=== PATIENT | male | born 1950 ===

== ENCOUNTER → 2025-01-04 19:30 | Outpatient (BNV) | payer OTHER, SELFPAY | PROVIDERS: Visit Provider Internal Medicine | DX: G47.33 Obstructive sleep apnea (adult) (pediatric) (principal); R06.83 Snoring | CPT/HCPCS: 95810 ==

== ENCOUNTER → 2025-01-04 19:30 | Outpatient (REF) | payer OTHER, SELFPAY ==
--- OUTSIDE RECORDS SUMMARY | 2025-01-04 20:46 | XMS_ITS | Encounter Summary ---
Author Organization [facility] Address [address] [place] [address] Care Team Providers Care Architect Name Role Phone Avery Frank MD Primary Care Provider [phone] Reason for Visit * Reason Comments Follow Up Patient Questions Encounter Details Date Type Department Care Team (Late st Contact Info) Description 08/22/2024 Telephone [facility] Cardiology [address] [address] Bi Connors MD [address] [place] [address] Follow Up; Patient Questions Social History Tobacco Use Types Packs/Day Years Used Date Smoking Tobacco: Former Cigarettes Q uit: 09/28/1989 Passive Smoke Exposure: Past Sex and Gender Information Value Date Recorded Sex Assigned at Not on file Legal Sex Male 9:57 PM EDT Gender Identity Not on file Sexual Orientation Not on file documented as of this encounter Miscellaneous Notes * Telephone Encounter - Vivi Welsh RN - 08/22/2024 12:53 PM EDT Call from [place] would like to ask Dr. 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 Chua (T: [phone] Ext [phone]) He would also like to ask Dr. 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 documented in this encounter Plan of Treatment Not on file documented as of this encounter Visit Diagnoses Not on filedocumented in this encounter Care Teams Architect Relationship Specialty Start Date End Date Avery Frank MD [facility] [address] [place] [address] PCP - General Internal Medicine 08/15/24 documented as of this encounter
--- OUTSIDE RECORDS SUMMARY | 2025-01-04 20:46 | XMS_ITS | Encounter Summary ---
Author Organization [facility] Address [address] [place] [address] Care Team Providers Care Event Executive Name Role Phone Avery Frank MD Primary Care Provider Reason for Referral * OUTPT PROCEDURES AND DIAGNOSTICS (Routine) - New Request Specialty Diagnoses / Procedures Referred By Quangac t Referred To Contact Cardiology Diagnoses Nonrheumatic aortic valve stenosis Procedures REQUEST FOR ECHO - EXTERNAL REQUEST FOR ECHO - EXTERNAL Kiko Sparrow DO [address] [address] Phone: tel: fax: Referral ID Status Reason Start Date Expiration Date Visits Requested Visits Authorized [id number] New Request Specialty Services Required 09/06/2024 1 1 Encounter Details Date Type Department Care Team (Late st Contact Info) Description 09/06/2024 Orders Only [facility] Cardiology [phone] [address] Kiko Sparrow DO [address] [address] Social History Tobacco Use Types Packs/Day Years Used Date Smoking Tobacco: Former Cigarettes Q uit: 09/28/1989 Passive Smoke Exposure: Past Sex and Gender Information Value Date Recorded Sex Assigned at Not on file Legal Sex Male 9:57 PM EDT Gender Identity Not on file Sexual Orientation Not on file documented as of this encounter Plan of Treatment Scheduled Orders Name Type Priority Associated Diagnoses Orde r Schedule REQUEST FOR ECHO - EXTERNAL cardiovascular Routine Nonrheumatic aortic valve stenosis Ordered: 09/06/2024 documented as of this encounter Visit Diagnoses Diagnosis Nonrheumatic aortic valve stenosis- Primary Aortic valve disorders documented in this encounter Care Teams Event Executive Relationship Specialty Start Date End Date Avery Frank MD [facility] [address] [place] [address] PCP - General Internal Medicine 08/15/24 documented as of this encounter
--- OUTSIDE RECORDS SUMMARY | 2025-01-04 20:46 | XMS_ITS | Encounter Summary ---
Author Organization [facility] Address [address] [place] [address] Care Team Providers Care Intelligence Operations Specialist Name Role Phone Avery Frank MD Primary Care Provider [phone] Encounter Details Date Type Department Care Team (Latest Contact Info) Description 10/27/2024 Professional Billing [facility] Nephrology [address] [place] [phone] Issa Bright MD [address] [place] [id number] Acute renal failure superimposed on chronic kidney disease, unspecified acute renal failure type, unspecified CKD stage Social History Tobacco Use Types Packs/Day Years Used Date Smoking Tobacco: Former Cigarettes Q uit: 09/28/1989 Passive Smoke Exposure: Past Sex and Gender Information Value Date Recorded Sex Assigned at Not on file Legal Sex Male 9:57 PM EDT Gender Identity Not on file Sexual Orientation Not on file documented as of this encounter Plan of Treatment Not on file documented as of this encounter Visit Diagnoses Diagnosis Acute renal failure superimposed on chronic kidney disease, unspecified acute renal failure type, unspecified CKD stage documented in this encounter Care Teams Intelligence Operations Specialist Relationship Specialty Start Date End Date Avery Frank MD [facility] [address] [place] [address] PCP - General Internal Medicine 08/15/24 documented as of this encounter
--- OUTSIDE RECORDS SUMMARY | 2025-01-04 20:46 | XMS_ITS | Clinical Summary ---
Author Organization [facility] Address [address] [place] [address] Care Team Providers Care Finisher Machine Name Role Phone Avery Frank MD Primary Care Provider [phone] Medications Ezetimibe (ZETIA) 10 MG tablet Take 1 tablet every day by oral route. 06/25/2024 Active hydrALAZINE HCl (APRESOLINE) 25 MG tablet Take 25 mg by mouth. 06/25/2024 Active Nitroglycerin (NITROSTAT) 0.4 MG SL tablet Active Isosorbide Mononitrate CR (IMDUR) 30 MG 24 hr tablet Take 1 tablet every day by oral route. Active Losartan Potassium (COZAAR) 100 MG tablet Take 1 tablet every day by oral route. 06/25/2024 Active Rosuvastatin Calcium (CRESTOR) 40 MG tablet Take 1 tablet every day by oral route. 04/23/2024 Active Aspirin 81 MG Cap Take 1 capsule every day by oral route. Active Gabapentin (NEURONTIN) 300 MG capsule Take 1 capsule by mouth every night. 08/14/2024 Active Active Problems Problem Noted Date Diagnosed Date Nonrheumatic aortic valve st enosis - post TAVR 29 mm JOVON Ultra 10/09/2024 at [facility] 08/25/2024 Angina pectoris 08/15/2024 Encounters Date Type Department Care Team Description 10/27/2024 Professional Billing [facility] Nephrology [address] [place] [phone] Issa Bright MD Acute renal failure superimposed on chronic kidney disease, unspecified acute renal failure type, unspecified CKD stage 10/22/2024 Minor Procedure/Test NON FC [facility] [address] [place] [address] [facility], Unknown Provider 10/21/2024 Professional Billing [facility] [address] [place] [address] Jack Nielsen MD WAYNE (acute kidney injury) [N17.9] 10/21/2024 Consult (Initial) NON FC [address] [address] Julia Bowesr MD 10/21/2024 Consult (Initial) NON FC [address] [address] Jack Nielsen MD 10/21/2024 Consult (Initial) NON FC SA [address] [address] [facility], Unknown Provider 10/21/2024 ER NON FC [address] [address], Unknown Provider 10/21/2024 Hospital/Inpatient NON FC [address] [address] Justice Arnett [facility], Unknown Provider Sepsis, unspecified organism (HCC); Other toxic encephalopathy; Bronchopneumonia, unspecified organism; Pneumonitis due to inhalation of food and vomit (HCC); Acute kidney failure with tubular necrosis; Acidosis, unspecified; Anemia, unspecified; Type 2 diabetes mellitus with diabetic chronic kidney disease (HCC); Unspecified diastolic (congestive) heart failure (HCC); Chronic kidney disease, stage 4 (severe) (HCC); Hypertensive heart and chronic kidney disease with heart failure and stage 1 through stage 4 chronic kidney disease, or unspecified chronic kidney disease (HCC); Hypothyroidism, unspecified; Obesity, unspecified; Thoracic aortic ectasia; Presence of prosthetic heart valve; Melena; Hyperkalemia; Ischemic cardiomyopathy; Body mass index (BMI) 36.0-36.9, adult; Nonrheumatic mitral (valve) insufficiency; Type 2 diabetes mellitus with diabetic polyneuropathy (HCC); Collapsed vertebra, not elsewhere classified, lumbar region, subsequent encounter for fracture with routine healing; Chronic total occlusion of coronary artery; Hyperlipidemia, unspecified; Unspecified chronic gastritis without bleeding Discharge Disposition: Discharged to home or self care (routine discharge) 10/10/2024 Professional Billing [facility] Cardiology [address] [address] Jessika Jain MD Aortic valve stenosis, etiology of cardiac valve disease unspecified; S/P TAVR (transcatheter aortic valve replacement) 10/09/2024 Orders Only NON FC [facility] [address] [place] [address] [facility], Unknown Provider 10/09/2024 Professional Billing [facility] Cardiology [address] [phone] Bi Connors MD Aortic valve stenosis, etiology of cardiac valve disease unspecified 10/04/2024 Telephone [facility] Cardiology [address] [facility] [address] [place] [phone] Bi Connors MD Valvular-structural Heart Intervention from Last 3 Months Social History Tobacco Use Types Packs/Day Years Used Date Smoking Tobacco: Former Cigarettes Q uit: 09/28/1989 Passive Smoke Exposure: Past Tobacco Cessation:Counseling Given: Not Answered Sex and Gender Information Value Date Recorded Sex Assigned at Not on file Legal Sex Male 9:57 PM EDT Gender Identity Not on file Sexual Orientation Not on file Last Filed Vital Signs Vital Sign Reading Time Taken Comments Blood Pressure 126/64 08/15/2024 1:57 PM EDT Pulse 78 08/15/2024 1:57 PM EDT Temperature - - Respiratory Rate - - Oxygen Saturation 97% 08/15/2024 1:57 PM EDT Inhaled Oxygen Concentration - - Weight 108 kg (238 lb) 08/15/2024 1:57 PM EDT Height 170.2 cm (5' 7 ) 08/15/2024 1:57 PM EDT Body Mass Index 37.28 08/15/2024 1:57 PM EDT Plan of Treatment Health Maintenance Due Date Last Done Comments Hepatitis C Screening 1950 Parathyroid Hormone Screening 1950 DTaP/Tdap/Td (1 - Tdap) 1967 Pneumococcal 50+ years (1 of 2 - PCV) 02/05/1968 Hep B (1 of 3 - Risk Dialysis 4-dose series) 1969 Colon Cancer Screening 1994 Zoster (Shingrix) (1 of 2) 1999 Abdominal Aorta Imaging 2014 RSV (1 - 1-dose 75+ series) 02/05/2024 COVID-19 Vaccine ( - season) 2024 01/31/2021, 06/20/2020, 05/23/2020 Influenza (#1) 2024 05/18/2023, 10/2021, 01/26/2019, Additional history exists Chest Imaging Discontinued 08/25/2024, 08/23/2024 EKG Discontinued 10/21/2024, 09/19, 09/19/2024, Additional history exists HPV Vaccine (No Doses Required) Completed Hep A Aged Out No longer eligi ble based on patient's age to complete this topic Hib Aged Out No longer eligi ble based on patient's age to complete this topic Meningococcal ACWY Aged Out No longer eligible based on patient's age to complete this topic Microalbumin Discontinued Zoster (Zostavax) Discontinued Procedures * Due to [place] state law, this organization might not be sharing negative HIV tests. Procedure Name Priority Date/Time Associated Diagnosis Comments GLUCOSE POINT OF CARE Routine 10/23/2024 4:38 PM EDT GLUCOSE POINT OF CARE Routine 10/23/2024 11:09 AM EDT GLUCOSE POINT OF CARE Routine 10/23/2024 7:46 AM EDT PHOSPHATE LEVEL Routine 10/23/2024 5:21 AM EDT MAGNESIUM LEVEL Routine 10/23/2024 5:21 AM EDT COMPREHENSIVE METABOLIC PANEL Routine 10/23/2024 5:21 AM EDT COMPLETE BLOOD COUNT WITH AUTO DIFFERENTIAL Routine 10/23/2024 5:21 AM EDT GLUCOSE POINT OF CARE Routine 10/22/2024 9:20 PM EDT BASIC METABOLIC PANEL Routine 10/22/2024 6:38 PM EDT COMPREHENSIVE METABOLIC PANEL Routine 10/22/2024 6:38 PM EDT CBC Routine 10/22/2024 6:38 PM EDT GLUCOSE POINT OF CARE Routine 10/22/2024 4:46 PM EDT GLUCOSE POINT OF CARE Routine 10/22/2024 11:17 AM EDT PHOSPHATE LEVEL Routine 10/22/2024 10:19 AM EDT MAGNESIUM LEVEL Routine 10/22/2024 10:19 AM EDT COMPREHENSIVE METABOLIC PANEL Routine 10/22/2024 10:19 AM EDT TROPONIN T, HIGH SENSITIVITY Routine 10/22/2024 10:19 AM EDT CBC Routine 10/22/2024 10:19 AM EDT GLUCOSE POINT OF CARE Routine 10/22/2024 7:21 AM EDT MODIFIED BARIUM SWALLOW 10/22/2024 TROPONIN T, HIGH SENSITIVITY Routine 10/21/2024 9:02 PM EDT GLUCOSE POINT OF CARE Routine 10/21/2024 8:21 PM EDT TRANSFUSION OF BLOOD PRODUCT Routine 10/21/2024 8:09 PM EDT URINALYSIS MICROSCOPIC EXAM Routine 10/21/2024 7:19 PM EDT URINALYSIS AUTO W/MICROSCOPIC Routine 10/21/2024 7:19 PM EDT ELECTROCARDIOGRAM, TRACING Routine 10/21/2024 7:17 PM EDT MYCOPLASMA PNEUMONIA ANTIBODY IGM Routine 10/21/2024 5:14 PM EDT TROPONIN T, HIGH SENSITIVITY Routine 10/21/2024 5:14 PM EDT LDH Routine 10/21/2024 5:14 PM EDT BASIC METABOLIC PANEL Routine 10/21/2024 5:14 PM EDT RETIC COUNT AUTO Routine 10/21/2024 5:14 PM EDT CBC Routine 10/21/2024 5:14 PM EDT GLUCOSE POINT OF CARE Routine 10/21/2024 5:01 PM EDT MYCOPLASMA PNEUMONIA ANTIBODY IGG Routine 10/21/2024 3:48 PM EDT HAPTOGLOBIN Routine 10/21/2024 3:48 PM EDT MRSA CULTURE SCREEN, NASAL ONLY Routine 10/21/2024 1:21 PM EDT STREP PNEUMONIA URINE Routine 10/21/2024 1:21 PM EDT LEGIONELLA/S.PNEUMO UR ANTIGEN Routine 10/21/2024 1:21 PM EDT GLUCOSE POINT OF CARE Routine 10/21/2024 7:14 AM EDT BLOOD CULTURE Routine 10/21/2024 6:35 AM EDT BLOOD CULTURE Routine 10/21/2024 6:35 AM EDT TRANSFUSION OF BLOOD PRODUCT Routine 10/21/2024 5:48 AM EDT IRON LEVEL Routine 10/21/2024 2:22 AM EDT IRON BINDING CAPACITY Routine 10/21/2024 2:22 AM EDT UNSPECIFIED MAJOR PROCEDURE 10/21/2024 ECHOCARDIOGRAM Routine 10/10/2024 7:43 AM EDT CARDIOVASCULAR TEST/PROCEDURE, UNSPECIFIED Routine 10/09/2024 11:36 AM EDT ELECTROCARDIOGRAM, TRACING Routine 10/09/2024 10:[address] CHEST, W/O CONTRAST Routine 1:25 PM EDT from Last 3 Months or Most Recently Relevant to Health Maintenance Results * Due to [place] state law, this organization might not be sharing negative HIV tests. * (ABNORMAL) GLUCOSE POINT OF CARE (10/23/2024 4:38 PM EDT) Only the most recent of10 resultswithin the time period is included. Glucose (Capillary Blood) 276(H) 70 - 105 mg/dL [facility] 10/23/2024 4:38 PM EDT 10/23/2024 4:38 PM EDT us Justice Arnett LABORATORY Final Result [facility] [address] [place] [address] * (ABNORMAL) PHOSPHATE LEVEL (10/23/2024 5:21 AM EDT) Only the most recent of2 resultswithin the time period is included. Phosphate 4.7(H) 2.5 - 4.5 mg/dL [facility] 10/23/2024 5:21 AM EDT 10/23/2024 5:30 AM EDT Unknown Provider [facility] LABORATORY Final Resul t [facility] [address] [place] [address] * MAGNESIUM LEVEL (10/23/2024 5:21 AM EDT) Only the most recent of2 resultswithin the time period is included. Magnesium 2.1 1.6 - 2.6 mg/dL [facility] 10/23/2024 5:21 AM EDT 10/23/2024 5:30 AM EDT us Unknown Provider Sv LABORATORY Final Resul t [facility] [address] [place] [address] * (ABNORMAL) COMPLETE BLOOD COUNT WITH AUTO DIFFERENTIAL (10/23/2024 5:21 AM EDT) WBC 8.9 3.9 - 11.0 x10(3)/[facility] RBC 3.53(L) 4.30 - 5.80 million/mc L [facility] HGB 9.6(L) 12.5 - 17.0 g/dL [facility] HCT 29.3(L) 36.0 - 50.0 % [facility] MCV 83 80 - 100 fL [facility] MCH 27 27 - 33 pg [facility] MCHC 33 31 - 36 g/dL [facility] RDW-SD 48 [facility] PLATELET COUNT 271 150 - 450 x10(3)/[facility] MPV 9.6 7.0 - 11.0 fL [facility] NEUTROPHIL REL 70 42 - 76 % [facility] LYMPHOCYTE REL 16(L) 27 - 47 % [facility] MONOCYTE REL 8 4 - 13 % [facility] EOSINOPHIL REL 4 0 - 7 % [facility] BASOPHIL REL 1 0 - 3 % [facility] IMM GRAN REL 0 % [facility] NEUTROPHIL ABS 6.2 1.8 - 7.0 x10(3)/[facility] LYMPHOCYTE ABS 1.4 1.1 - 5.9 x10(3)/[facility] MONOCYTE ABS 0.7 0.1 - 0.8 x10(3)/[facility] EOSINOPHIL ABS 0.39 0.00 - 0.40 x10(3)/[facility] BASOPHIL ABS 0.10 0.00 - 0.20 x10(3)/[facility] IMM GRAN ABS 0 10(3)/uL [facility] NRBC AUTO REL 0 % [facility] NRBC AUTO ABS 0.00 x10(3)/mcL [facility] 10/23/2024 5:21 AM EDT 10/23/2024 5:29 AM EDT us Unknown Provider Svh LABORATORY Final Resul t [facility] [address] [place] [address] * (ABNORMAL) COMPREHENSIVE METABOLIC PANEL (10/23/2024 5:21 AM EDT) Only the most recent of3 resultswithin the time period is included. Sodium 133(L) 134 - 144 mEq/L [facility] Potassium 4.5 3.6 - 5.6 mEq/L [facility] Chloride 103 96 - 109 mEq/L [facility] Carbon dioxide 18(L) 20 - 32 mEq/L [facility] Glucose 131(H) 65 - 99 mg/dL [facility] Urea Nitrogen Blood (BUN) 68(H) 5 - 26 mg/dL [facility] Creatinine 3.38(H) 0.50 - 1.50 mg/dL [facility] Anion gap 12.0 8.0 - 15.0 [facility] BUN/Creatinine Ratio 20 8 - 27 [facility] Protein Total (Serum) 6.6 6.0 - 8.5 g/dL [facility] Albumin 3.8 3.5 - 4.8 g/dL [facility] Calcium 9.0 8.3 - 10.0 mg/dL [facility] Bilirubin Total 0.3 0.1 - 1.2 mg/dL [facility] Comment: Premature Full Term Cord <2.0 <2.0 0-1d <8.0 <8.0 1-2d <12.0 <8.0 3-5d <16.0 <12.0 5-10d <2.0 0.2-1.0 >10d <2.0 0.2-1.0 Alkaline phosphatase 68 25 - 160 U/L [facility] AST (SGOT) 19 0 - 55 U/L [facility] ALT (SGPT) 11 0 - 44 U/L [facility] Globulin 2.8 1.5 - 4.5 g/dL [facility] Osmolality 298(H) 275 - 295 mOsm/kg [facility] Albumin/Globulin 1.4 1.1 - 2.5 [facility] Calcium 9 mg/dL [facility] EGFR CKD-EPI 18(L) >=90 mL/min/1.7 3m2 [facility] 10/23/2024 5:21 AM EDT 10/23/2024 5:30 AM EDT us Unknown Provider [facility] LABORATORY Final Resul t Performing Organization Address City/[facility]/ZIP Co de Phone Number [facility] [address] [place] [address] * (ABNORMAL) CBC (10/22/2024 6:38 PM EDT) Only the most recent of3 resultswithin the time period is included. WBC 8.1 3.9 - 11.0 x10(3)/[facility] RBC 3.34(L) 4.30 - 5.80 million/mc L [facility] HGB 9.5(L) 12.5 - 17.0 g/dL [facility] HCT 28.2(L) 36.0 - 50.0 % [facility] MCV 84 80 - 100 fL [facility] MCH 28 27 - 33 pg [facility] MCHC 34 31 - 36 g/dL [facility] RDW-SD 49 [facility] PLATELET COUNT 265 150 - 450 x10(3)/[facility] MPV 9.4 7.0 - 11.0 fL [facility] 10/22/2024 6:38 PM EDT 10/22/2024 7:04 PM EDT us Unknown Provider [facility] LABORATORY Final Resul t Performing Organization Address City/[facility]/ZIP Co de Phone Number [facility] [address] [place] [address] * (ABNORMAL) BASIC METABOLIC PANEL (10/22/2024 6:38 PM EDT) Only the most recent of2 resultswithin the time period is included. Sodium 135 134 - 144 mEq/L [facility] Potassium 4.5 3.6 - 5.6 mEq/L [facility] Chloride 105 96 - 109 mEq/L [facility] Carbon dioxide 19(L) 20 - 32 mEq/L [facility] Glucose 195(H) 65 - 99 mg/dL [facility] Urea Nitrogen Blood (BUN) 71(H) 5 - 26 mg/dL [facility] Creatinine 3.48(H) 0.50 - 1.50 mg/dL [facility] Calcium 8.9 8.3 - 10.0 mg/dL [facility] Anion gap 11.0 8.0 - 15.0 [facility] BUN/Creatinine Ratio 20 8 - 27 [facility] Osmolality 306(H) 275 - 305 mmol/kg [facility] EGFR CKD-EPI 18(L) >=90 mL/min/1.7 3m2 [facility] 10/22/2024 6:38 PM EDT 10/22/2024 7:05 PM EDT us Unknown Provider [facility] LABORATORY Final Resul t Performing Organization Address City/[facility]/ZIP Co de Phone Number [facility] [address] [place] [address] * (ABNORMAL) TROPONIN T, HIGH SENSITIVITY (10/22/2024 10:19 AM EDT) Only the most recent of3 resultswithin the time period is included. TROPONIN T. CARDIAC [facility] PT SER/PLAS QN HIGH SENSITIVITY 864(C) 0 - 22 ng/L [facility] Comment:critical prev called 10/22/2024 10:1 9 AM EDT 10/22/2024 10:31 AM EDT us Angie Padilla MD LABORATORY Final Result [facility] [address] [place] [address] * MODIFIED BARIUM SWALLOW (10/22/2024) Anatomical Region Laterality Modality Other Narrative 10/22/2024 Ordered by an unspecified provider. Procedure Note [facility], Unknown Provider - 10/21/2024 4:00 PM EDT SKIVER COUNTER Evaluation Entered On: 10/22/2024 14:42 EDT Performed On: 10/22/2024 10:15 EDT by Ashley Luna [facility] Physical Therapy Orders : No active Physical Therapy Orders. Occupational Therapy Orders : No active Occupational Therapy orders. Speech Orders : Speech Therapy Bedside Swallow Evaluation & Treatment- Routine, 10/21/2024 16:00:00 EDT, Once Scheduled Diagnosis : CHIEF COMPLAINT WAYNE N17.9 Patient Preferred Language : Patient Language: American Ashley Luna - 10/22/2024 14:26 EDT History of Present Illness History of Present Illness SKIVER COUNTER : 74M PMHx HF and DIAMOND p/w weakness, fallfrom chair, and BRBPR with low H&H. He had recently had a TAVR (10/09/24) and[facility], was dx with sepsis from aspirationPNA based on imaging. At [facility], Pt underwent 10/21 EGD revealing medium hiatalhernia and erosive antral gastritis. At time of SKIVER COUNTER eval, Pt was afebrile withWBC WNL. He is previously unknown to [facility] SKIVER COUNTER dept. He denies hx ofdifficulty swallowing, PNA, and s/sx of reflux. Ashley Luna - 10/22/2024 14:26 EDT Mental Status/Alertness Level Level of Consciousness : Alert Orientation : Oriented X 4 Thought Process : Coherent Ashley Luna - 10/22/2024 14:26 EDT Oral Motor Current Diet Order : Clear Liquid Diet -- 10/21/2024 15:13:00 EDT Current Method of Nutrition : Oral intake Dentition : Fair, Missing some teeth Wired/Banded : No Manages Own Secretions : Yes Ashley Luna - 10/22/2024 14:26 EDT Oral Structure Grid Facial : WFL Labial : WFL Lingual : WFL Soft Palate : WFL Hard Palate : WFL Mandible : WFL Ashley Luna 10/22/2024 14:26 EDT Swallow Assessment Function Grid Facial : WFL Labial : WFL Lingual : WFL Soft Palate : WFL Hard Palate : WFL Mandible : WFL (Comment: cadd instructor V, VII, IX, X, XII intact b/l [Ashley Luna10/22/2024 14:26 EDT] ) Volitional Cough : Within normal limits Ashley Luna 10/22/2024 14:26 EDT Bedside Swallow Patient Position Bedside Swallow : Upright 90 degrees Suctioning Required : No Ashley Luna 10/22/2024 14:26 EDT Rehab Consistencies Tested Grid Continuous Thin by Straw : Passed Ashley Luna 10/22/2024 14:26 EDT Liquid/Solid Presentation Bedside : Patient Oral Symptoms : None observed Pharyngeal Symptoms : None observed Ashley Luna 10/22/2024 14:26 EDT Rehab Swallow Vocalization Grid Before Intake : Dry quality After Intake : Dry quality Ashley Luna 10/22/2024 14:26 EDT Diagnostic Findings : Pt declined laryngeal function exam. Predisposing risk factors for dysphagia: HF, DIAMOND; Precipitating riskfactors for dysphagia: GIB, PNA; Protective factors against dysphagia:functional mental status for PO intake, able to self-feed/clean oral cavity, stableon room air. Low concern or oropharyngeal dysphagia and prandial aspiration. Pt athigher risk for esophageal dysphagia and post-prandial aspiration. Pt educatedon s/sx of aspiration and PNA and encouraged to seek swallow re-assessmentfor any relevant changes in his condition. Ashley Luna 10/22/2024 14:26 EDT Vital Signs Respiratory Rate : 19 breaths/min SpO2 : 98 % Oxygen Delivery : Room air Ashley Luna 10/22/2024 14:26 EDT Diet Recommended Liquid Consistencies : Thin Recommended Diet : Regular Swallow Treatment Plan : Recommended Swallow Strategies Recommended : None Swallow Supervision Recommended : None Ashley Luna 10/22/2024 14:[address] Assessment Rehabilitation Potential : Good Speech/Language Deficits : Dysphagia Skilled Speech Services Justification : Ensure safe and effectivenutrition, Prevent aspiration pneumonia Ashley Luna 10/22/2024 14:[address] Plan Planned Swallow Treatment Techniques : Training of compensatoryswallow strategies Ashley Luna - 10/22/2024 14:[address] Goals Speech/Language/Patient/Caregiver Goals : Pt wants to get eating. ST Plan/Goals Established w Pt/Caregiver : Yes ST Short Term Goal #1 : Pt will utilize esophageal precautions duringand after all PO intake. ST STG #1 Goal Status : Initial assessment ST Usp Goal #1 : Pt will consume safest and least restrictive POdiet meeting nutrition, hydration, and quality of life needs. ST LTG #1 Goal Status : Initial assessment Ashley Luna - 10/22/2024 14:[address] Procedures : Oral/Pharyngeal Swallowing Function Eval Complex Emeli COLE, Ashley - 10/22/2024 14:26 EDT us Unknown Provider [facility] IMAGING - NO INBASKET RTG F inal Result * TRANSFUSION OF BLOOD PRODUCT (10/21/2024 8:09 PM EDT) [facility] Signature RED BLOOD CELL PRODUCT Patient Name: CAMERON WU : 1950 Sex:Male Location: [place] [address]; [address] [place] [address] Posting Machine Operator(s): [address] [place] [id number] Ordering Physician: René BRAVO, [facility] Laboratory Results Blood Bank Collected Date/Time Specimen Type 10/21/2024 20:09 EDT Blood Procedure Result Units Reference Verified Range Date/Time Red Cells Complete [*1] 10/21/2024 20:13 EDT # Units 1 [*1] 10/21/2024 20:13 EDT Performing Locations *1: This test was performed at: [facility], [address] [place] [address], [phone], , Legend: A = Abnormal, H = High, L = Low, ! = Critical, f = Footnote, r = Refere = Corrected, I = Interpretation [facility] 10/21/2024 8:09 PM EDT 10/21/2024 8:13 PM EDT us Unknown Provider Svh PROCEDURES Final Resul t Performing Organization Address City/[facility]/ZIP Co de Phone Number [facility] [address] [place] [address] * (ABNORMAL) URINALYSIS MICROSCOPIC EXAM (10/21/2024 7:19 PM EDT) WBC (Urine) 31-40(A) 0 - 10 /hpf [facility] RBC (Urine Sed) 3-5(A) 0 - 2 /hpf [facility] Bacteria (Urine) Few(A) None Seen /hpf [facility] Epithelial cells.squamous (Urine sed) None Seen None Seen /hpf [facility] Mucus (Urine sed) Few(A) None Seen /hpf [facility] Hyaline casts (Urine sed) 0-1(A) /lpf [facility] Leukocyte clumps (Urine sed) 5-9 (Few)(A) None Seen /hpf [facility] 10/21/2024 7:19 PM EDT 10/21/2024 7:25 PM EDT us Angie Padilla MD LABORATORY Final Result Performing Organization Address [facility] Co de Phone Number [facility] [address] [place] [address] * (ABNORMAL) URINALYSIS AUTO W/MICROSCOPIC (10/21/2024 7:19 PM EDT) Specific gravity (Urine) 1.010 1.003 - 1.030 [facility] pH (Urine) 5.5 5.0 - 9.0 [facility] Leukocyte esterase (Urine) Large(A) Negative [facility] Nitrite (Urine) Negative Negative [facility] Protein (Urine) 30(A) Negative mg/dL [facility] Glucose (Urine) >1000(A) Negative mg/dL [facility] Ketones (Urine) Negative Negative mg/dL [facility] Urobilinogen (Urine) Normal Normal mg/dL [facility] Bilirubin (Urine) Negative [facility] Hemoglobin (Urine) Small(A) Negative [facility] Color (Urine) Colorless Yellow [facility] Appearance (Urine) Slightly Cloudy(A) Clear [facility] 10/21/2024 7:19 PM EDT 10/21/2024 7:25 PM EDT us Angie Padilla MD LABORATORY Final Result Performing Organization Address City/State/[facility] Co de Phone Number [facility] [address] [place] [address] * ELECTROCARDIOGRAM, TRACING (10/21/2024 7:17 PM EDT) Only the most recent of2 resultswithin the time period is included. T HORIZONTAL AXIS 163 degree [facility] QRS AXIS 45 degree [facility] IN INTERVAL 210 msec [facility] QRSD INTERVAL 109 msec [facility] RAD T-40 FRONT AXIS 83 degree [facility] RAD QRS HORIZONTAL AXIS -11 degree [facility] [facility] ATRIAL RATE 74 msec [facility] Q ONSET 502 msec [facility] ELECTROCARDIOGRAM 12 LEAD - ABNORMAL ECG - Sinus rhythm LVH with secondary repolarization abnormality [facility] Comment:Missing Attachment B 64ENCODE Can be viewed in source system QTCF 406 msec [facility] RR INTERVAL 822 msec [facility] P FRONT AXIS 60 degree [facility] S-T FRONT AXIS 218 degree [facility] RAD T-40 HORIZONTAL AXIS -62 degree [facility] HEART RATE 73 bpm [facility] RAD P HORIZONTAL AXIS -36 degree [facility] QTCB 419 msec [facility] S-T HORIZONTAL AXIS 163 degree [facility] I-40 FRONT AXIS 10 degree [facility] P DURATION 0 msec [facility] RAD T WAVE AXIS 206 degree [facility] I-40 HORIZONTAL AXIS 20 degree [facility] QT INTERVAL 380 msec [facility] 10/21/2024 7:17 PM EDT us Unknown Provider Svh CARDIOVASCULAR-NO INBASKET RTG Final Result Performing Organization Address City/[facility]/ZIP Co de Phone Number [facility] [address] [place] [address] * MYCOPLASMA PNEUMONIA ANTIBODY IGM (10/21/2024 5:14 PM EDT) [facility] Mycoplasma pneumoniae Ab.IgM <770 0 - 769 units/mL [facility] Comment: Negative <770 Clinically significant amount of M. pneumoniae antibody not detected. Low Positive 770 - 950 M. pneumoniae specific IgM presumptively detected. It is recommended that another sample be collected 1-2 weeks later to assure reactivity. Positive >950 Highly significant amount of M. pneumoniae specific IgM antibody detected. Performed at: - [facility] [id number] Lead Ruby On Rails Developer: Mallory Perla MD, Phone: [phone] 10/21/2024 5:14 PM EDT 10/21/2024 5:42 PM EDT Angie Padilla MD LABORATORY Final Result Performing Organization Address [facility] Co de Phone Number [facility] [address] [place] [address] * RETIC COUNT AUTO (10/21/2024 5:14 PM EDT) [facility] RETIC RELATIVE 3.2 0.4 - 5.3 % [facility] RETIC ABSOLUTE 81.5 20.0 - 120.0 10e9/L [facility] 10/21/2024 5:14 PM EDT 10/21/2024 5:42 PM EDT Angie Padilla MD LABORATORY Final Result Performing Organization Address City/[facility]/ZIP Co de Phone Number [facility] [address] [place] [address] * (ABNORMAL) LDH (10/21/2024 5:14 PM EDT) [facility] Lactate dehydrogenase 242(H) 0 - 226 U/L [facility] 10/21/2024 5:14 PM EDT 10/21/2024 5:42 PM EDT us Angie Padilla MD LABORATORY Final Result [facility] [address] [place] [address] * (ABNORMAL) MYCOPLASMA PNEUMONIA ANTIBODY IGG (10/21/2024 3:48 PM EDT) [facility] Mycoplasma pneumoniae Ab.IgG 146(H) 0 - 99 units/mL [facility] Comment: Negative: <100 Indeterminate: 100 - 320 Positive: >320 The reference interval established is intended as a baseline only. Values >100 may indicate a recent infection with Mycoplasma pneumoniae and need to be confirmed either by a positive IgM result and/or an additional specimen drawn 2-4 weeks later showing a significant increase in antibody levels. Performed at: [address] [id number] Lead Ruby On Rails Developer: Mallory Perla MD, Phone: [phone] 10/21/2024 3:48 PM EDT 10/21/2024 3:57 PM EDT us Angie Padilla MD LABORATORY Final Result Performing Organization Address City/[facility]/ZIP Co de Phone Number [facility] [address] [place] [address] * HAPTOGLOBIN (10/21/2024 3:48 PM EDT) [facility] Haptoglobin 256 34 - 355 mg/dL [facility] Comment: Performed at: [address] [id number] Lead Ruby On Rails Developer: Mallory Perla MD, Phone: [phone] 10/21/2024 3:48 PM EDT 10/21/2024 3:56 PM EDT Angie Padilla MD LABORATORY Final Result Performing Organization Address City/[facility]/ZIP Co de Phone Number [facility] [address] [place] [address] * MRSA CULTURE SCREEN, NASAL ONLY (10/21/2024 1:21 PM EDT) [facility] MRSA SCREEN Patient Name: CAMERON WU : 1950 Sex:Male Location: [place] [address]; [facility]; [facility] Posting Machine Operator(s): [address] [place] [id number]- Ordering Physician: ANGIE PADILLA MD Microbiology Procedure: MRSA Screen Culture [*1] Source: Nasal Body Site: Nares Collected 10/21/2024 13:21 EDT Received 10/21/2024 13:53 EDT Date/Time: Date/Time: Start Date/Time: 10/21/2024 13:53 EDT Free Text Source: FINAL REPORTS Final Report [] Verified Date/Time: 10/23/2024 08:14 EDT No Methicillin resistant Staphylococcus aureus isolated. Performing Locations *1: This test was performed at: [facility], [address] [place] [address], [phone], , Legend: A = Abnormal, H = High, L = Low, ! = Critical, f = Footnote, r = Refere = Corrected, I = Interpretation [facility] 10/21/2024 1:21 PM EDT 10/21/2024 1:53 PM EDT us Angie Padilla MD LABORATORY Final Result Performing Organization Address [facility] Co de Phone Number [facility] [address] [place] [address] * STREP PNEUMONIA URINE (10/21/2024 1:21 PM EDT) Streptococcus pneumoniae Ag (Urine) Presumptive Neg Presumptive Neg [facility] Comment: Results suggest no current or recent infection with S. pneumoniae. Infection cannot be ruled out since antigen in specimen may be below the detectable limits of the test 10/21/2024 1:21 PM EDT 10/21/2024 1:22 PM EDT Angie Padilla MD LABORATORY Final Result Performing Organization Address [facility]/State/ZIP Co de Phone Number [facility] [address] [place] [address] * LEGIONELLA/S.PNEUMO UR ANTIGEN (10/21/2024 1:21 PM EDT) Legionella sp Ag (Urine) Presumptive Neg Presumptive Neg [facility] Comment: Results suggest no recent or current infection with L. pneumophila serogroup 1. Legionella infection cannot be ruled out for other serogroups or if antigen levels are below test detectable limits of the test. 10/21/2024 1:21 PM EDT 10/21/2024 1:22 PM EDT us Angie Padilla MD LABORATORY Final Result [facility] [address] [place] [address] * BLOOD CULTURE (10/21/2024 6:35 AM EDT) Only the most recent of2 resultswithin the time period is included. Pathologist [facility] BLOOD CULTURE Patient Name: CAMERON UW : 1950 Sex:Male Location: [place] [address]; [facility] Posting Machine Operator(s): [address] [place] [phone]- Ordering Physician: BI MCKINNEY MD Microbiology Procedure: Blood Culture [*1] Source: Peripheral Draw Body Site: Collected 10/21/2024 06:35 EDT Received 10/21/2024 09:10 EDT Date/Time: Date/Time: Start Date/Time: 10/21/2024 09:11 EDT Free Text Source: FINAL REPORTS Final Report [] Verified Date/Time: 10/26/2024 12:01 EDT No growth at 5 days. PRELIMINARY REPORTS Preliminary Report [] Verified Date/Time: 10/25/2024 12:01 EDT No growth at 4 days. Preliminary Report [] Verified Date/Time: 10/24/2024 12:01 EDT No growth at 3 days. Preliminary Report [] Verified Date/Time: 10/23/2024 12:02 EDT No growth at 2 days. Preliminary Report [] Verified Date/Time: 10/22/2024 12:01 EDT No growth at 1 day. Performing Locations *1: This test was performed at: [facility], [address] [place] [address], [phone], , Legend: A = Abnormal, H = High, L = Low, ! = Critical, f = Footnote, r = Refere = Corrected, I = Interpretation [facility] 10/21/2024 6:35 AM EDT 10/21/2024 9:10 AM EDT us Unknown Provider [facility] LABORATORY Final Resul t [facility] [address] [place] [address] * TRANSFUSION OF BLOOD PRODUCT (10/21/2024 5:48 AM EDT) [facility] Signature RED BLOOD CELL PRODUCT Patient Name: CAMERON WU : 1950 Sex:Male Location: [facility] - ; [address]; [facility] Posting Machine Operator(s): [address] [place] [phone] Ordering Physician: BI MCKINNEY MD Laboratory Results Blood Bank Collected Date/Time Specimen Type 10/21/2024 05:48 EDT Blood Procedure Result Units Reference Verified Range Date/Time Red Cells Complete [*1] 10/21/2024 09:10 EDT # Units 1 [*1] 10/21/2024 09:10 EDT Performing Locations *1: This test was performed at: [facility], [address] [place] [address], [phone], , Legend: A = Abnormal, H = High, L = Low, ! = Critical, f = Footnote, r = Refere = Corrected, I = Interpretation [facility] 10/21/2024 5:48 AM EDT 10/21/2024 6:57 AM EDT us Unknown Provider Svh PROCEDURES Final Resul t Performing Organization Address City/[facility]/ZIP Co de Phone Number [facility] [address] [place] [phone] * (ABNORMAL) IRON BINDING CAPACITY (10/21/2024 2:22 AM EDT) Iron binding capacity 262 228 - 428 mcg/dL [facility] Iron Binding Capacity, Unsaturated 233 112 - 346 mg/dL [facility] Iron saturation 11(L) 15 - 55 % [facility] 10/21/2024 2:22 AM EDT 10/21/2024 2:58 AM EDT us Angie Padilla MD LABORATORY Final Result Performing Organization Address [facility] Co de Phone Number [facility] [address] [place] [address] * (ABNORMAL) IRON LEVEL (10/21/2024 2:22 AM EDT) Iron 29(L) 40 - 155 mcg/dL [facility] 10/21/2024 2:22 AM EDT 10/21/2024 2:58 AM EDT us Angie Padilla MD LABORATORY Final Result Performing Organization Address [facility] Co de Phone Number [facility] [address] [place] [address] * UNSPECIFIED MAJOR PROCEDURE (10/21/2024) Narrative Procedure Note Julia Bowser MD - 10/23/2024 8:14 AM EDT Patient: CAMERON WU Age: 74 years Sex: Male : 1950 Associated Diagnoses: None Author: JULIA BOWSER MD Pre-Procedure Procedure Date: 10/21/2024 12:52:00 . Procedure Type: Esophagogastroduodenoscopy. Procedure provider: JULIA BOWSER MD (Provider). Current history and physical: Documented on chart. Informed Consent: After discussing the rationale, risks and benefits,and alternatives to this procedure, the patient provided signed consent forthe procedure. Pre-procedure diagnosis: Severe anemia possible melena. Medications: (Selected) Inpatient Medications Ordered HumaLOG sliding scale, resistant/medium: 4-12 Unit(s), Subcut, T9U-reg LR 1,000 mL: 125 mL/hr, IV, Stop: 10/21/2024 17:59:00 EDT Percocet 5/325 oral tablet: 1 tab, Oral, [id number], PRN: Pain Moderate Protonix: 40 mg = 10 mL, IV Push, Q12hr Sodium Chloride 0.9% 250 mL: to keep line open, IV, Stop: 505:47:00 EDT Tylenol: 650 mg = 2 tab, Oral, [id number], PRN: Pain Mild Unasyn: 1.5 g, 200 mL/hr, IV Piggyback, [id number] atorvastatin: 80 mg = 1 tab, Oral, Q Bedtime ezetimibe: 10 mg = 1 tab, Oral, Daily gabapentin: 300 mg = 1 cap, Oral, Q Bedtime Documented Medications Documented DilTIAZem (Eqv-Cardizem CD) 240 mg/24 hours oral capsule, extendedrelease: 240 mg = 1 cap, Oral, Daily, 0 Refill(s) acetaminophen 325 mg oral tablet: 650 mg = 2 tab, Oral, Q4hr, PRN: PainMild, 0 Refill(s) ascorbic acid 500 mg oral capsule: 500 mg = 1 cap, Oral, Daily, 0Refill(s) aspirin 81 mg oral enteric coated tablet: 81 mg = 1 tab, Oral, Daily, 0 Refill(s) clopidogrel 75 mg oral tablet: 75 mg = 1 tab, Oral, Daily, 30 tab, 0Refill(s) empagliflozin 25 mg oral tablet: 25 mg = 1 tab, Oral, 0 Refill(s) ezetimibe 10 mg oral tablet: 10 mg = 1 tab, Oral, Daily, 0 Refill(s) ferrous sulfate 325 mg (65 mg elemental iron) oral enteric coated tablet:325 mg = 1 tab, Oral, Daily, 30 tab, 0 Refill(s) gabapentin 300 mg oral capsule: 300 mg = 1 cap, Oral, Q Bedtime, 0Refill(s) hydrALAZINE 25 mg oral tablet: 25 mg = 1 tab, Oral, Daily, 0 Refill(s) insulin aspart 100 units/mL injectable solution: See Instructions,before meals, 0 Refill(s) insulin glargine-aglr 100 units/mL subcutaneous solution: 45 Unit(s),Subcut, BID, 0 Refill(s) isosorbide mononitrate 30 mg oral tablet, extended release: 30 mg = 1tab, Oral, Daily, 0 Refill(s) losartan 100 mg oral tablet: 100 mg = 1 tab, Oral, Daily, 0 Refill(s) rosuvastatin: 40 mg, Oral, Daily, 0 Refill(s) spironolactone 25 mg oral tablet: 25 mg = 1 tab, Oral, Daily, 30 tab, 0 Refill(s). ASA Classification: Class III. Monitoring: See anesthesia record. Procedure The procedure was performed in the hospital. See anesthesia record for sedation given during procedure. The patient was positioned starting inthe left lateral decubitus position. Endoscope type used was gastroscope, advanced to duodenum. Views were good. The patient tolerated theprocedure well. Case was discussed with cardiology and renal physician on-calland clearance was obtained Findings Esophagus: There was a medium size hiatal hernia otherwise esophagus was normal Stomach: There was mild erosive antral gastritis otherwise stomach wasnormal Duodenum normal Images Procedure images: (Image Inserted) Duodenum (Image Inserted) Duodenum (Image Inserted) Antrum (Image Inserted) Antrum (Image Inserted) Esophagus (Image Inserted) Duodenum . Post-Procedure Complications: none. Estimated blood loss: none. Impression and Plan Hiatal hernia otherwise normal esophagus Mild erosive antral gastritis Normal duodenum Suggest Protonix 40 mg once a day Clear liquid diet Prep for colonoscopy when patient is stable from cardiac and renalstatus KA us Julia Bowser MD PROCEDURES Final Result * ECHOCARDIOGRAM (10/10/2024 7:43 AM EDT) CARDIOLOGY REPORTS Please click on link to see image. [facility] Comment:Missing Attachment A TTACHMENT Can be viewed in source system REPORT Study ID: [id number] [address] [id number] Non- Invasive Cardiology Laboratory Transthoracic Echocardiogram Final Report Name: CAMERON WU Study Date: 10/10/2024 07:43 AM BP: 163/69 mmHg Patient Location: 36 : 1950 Height: 67 in Age: 74 yrs Gender: Male Weight: 231 lb Reason For Study: Aortic stenosis BSA: 2.2 m2 Ordering Physician: TOMMY HAMILTON Referring Physician: YURI LYON Performed By: Kassie Mancini Fellow: MD Eliot Parker Interpretation Summary Limited views were obtained. The study was technically difficult. Compared to prior study, changes are noted. Patient is status post 29 mm Neville JOVON 3 ultra bioprosthetic transcatheter aortic valve placment via a right femoral artery approach on 10/09/24. It is well seated. Max velocity 1.9 m/s with mean gradient 9 mmHg (expected 10.59 +/- 3.88 mmHg). DVI 0.46 (expected0.43 +/- 0.09). Calculated effective orifice area 1.5 cm?? (expected 1.74 cm?0.35). There is no paravalvular or valvular regurgitation seen. Hence all parameters are in the expected range. Aortic Valve Patient is status post 29 mm Neville JOVON 3 ultra bioprosthetic transcatheter aortic valve placment via a right femoral artery approach on 10/09/24. It is well seated. Max velocity 1.9 m/s with mean gradient 9 mmHg (expected 10.59 +/- 3.88 mmHg). DVI 0.46 (expected0.43 +/- 0.09). Calculated effective orifice area 1.5 cm?? (expected 1.74 cm?0.35). There is no paravalvular or valvular regurgitation seen. Hence all parameters are in the expected range. Pericardium/Pleur al There is no pericardial effusion. MMode/2D Measurements \T\ Calculations LVOT diam: 2.0 cm LVOT area: 3.2 cm2 Doppler Measurements \T\ Calculations Ao V2 max: 192.5 cm/sec Ao acc time: 0.12 sec Ao max P.8 mmHg Ao V2 mean: 145.4 cm/sec Ao mean P.1 mmHg Ao V2 VTI: 39.5 cm STEPHANIE(I,D): 1.5 cm2 STEPHANIE(V,D): 1.5 cm2 LV V1 max P.6 mmHg SV(LVOT): 58.2 ml LV V1 mean P.8 mmHg LV V1 max: 94.3 cm/sec LV V1 mean: 61.7 cm/sec LV V1 VTI: 18.4 cm AV VR_phl: 0.49 STEPHANIE(VTI)/BSA_phl: 0.68 Electronically Signed By: Jessika Jain MD 10/10/2024 07:46 PM Authenticated by JESSIKA JAIN MD [[id number]] on 10/10/2024 at 09:00:15 [facility] 10/10/2024 7:43 AM EDT us Unknown Provider Svh CARDIOVASCULAR-NO INBASKET RTG Edited Result - Final [facility] [address] [place] [address] * CARDIOVASCULAR TEST/PROCEDURE, UNSPECIFIED (10/09/2024 11:36 AM EDT) CARDIOLOGY REPORTS Compliance Review Officer TAVR Procedure Report Report Status: Final Cameron Wu [address] [place], [place] Cath #: [id number] Gender: Male : 1950 Age at Cath: 74 Procedural Data Date of Procedure: 10/09/2024,11:36 AM Other Procedure Assemblies And Installations Inspector: Bi Connors MD Assisting Personnel: Yinka Bhandari MD Assisting Personnel: Kevin Bryant MD Assisting Personnel: Yuri Lyon MD Referring MD/Assemblies And Installations Inspector: Kayla Sharma NP Referring MD/Assemblies And Installations Inspector: Bi Connors MD Primary Care Physician: Avery Frank MD Procedure(s): Procedure: Site: Tavr Percutaneous * Anesthesia Init 30 Mins * Anesthesia Each Addl 15 Mins * Total Fluoro Time: 11.7 minutes Air Kerma: 376 mGy Total Contrast: Medication: Dose: Isovue-370, Low (Locm) 7 ml Estimated Blood Loss: <50 ml Specimen(s) Removed: None History: Technique: Upon complete review of the relative risks, benefits, and alternatives to TAVR Mr. Reis provided written informed consent for same. He presented to the procedure room in the postabsorptive state with anesthesia team in attendance to provide monitored anesthesia care. Standard TAVR prep and sterile draping was completed and a final preprocedure quality and safety timeout successfully conducted. The right radial artery was accessed with a 21-gauge micro vascular needle and a 0.021 inch guidewire was inserted following which a 10 cm 6 [place] slender sheath was advanced in to the radial artery. Utilizing both fluoroscopic and ultrasound guidance and employing a 21-gauge 5 [place] micro vascular access system femoral vascular access was established. The left common femoral vein was cannulated and upon confirmation of entry into the left femoral vein via fluoroscopy a 6 [place] 10 cm vascular sheath was inserted. The right common femoral artery was then cannulated and confirmation of appropriate level of vascular entry was confirmed via fluoroscopy. The 5 [place] micro vascular access sheath was then inserted in the right common femoral artery and femoral angiography performed confirming entry in the INVERFORM MACHINE OPERATOR. A 0.035 inch guidewire was inserted via the micro sheath and sheath was removed. A 6 [place] 10 cm vascular sheath was inserted over the 0.035 inch guidewire and then removed. Two 8 [place] Perclose delivery systems were prepositioned at the right femoral arteriotomy. A 0.035 inch straight tip Amplatz Super Stiff guidewire was then advanced via the Perclose catheter dilator and under fluoroscopic guidance the distal tip of the wire was advanced to the aortic arch. A 10 [place] vascular sheath was then inserted in the right femoral artery. The Super Stiff Amplatz wire was exchanged via a 6 [place] JR4 catheter for a 0.035 inch Lunderquist guidewire. The JR4 catheter and 10 [place] vascular sheath were removed and the right femoral arteriotomy was dilated with an 18 [place] Neville dilator following which a 16 [place] Neville sheath was inserted in the right common femoral artery. A total of 14,500 units of unfractionated intravenous heparin were administered to achieve an ACT > 250 seconds A 6 [place] pigtail catheter was advanced over a 0.035??? j-tip guide wire via the right radial 6 [place] slender sheath and the pigtail was positioned in the noncoronary cusp. Aortic root angiography confirmed optimal coplanar angle for guiding valve implantation is best represented by the LITHUANIAN 3 Caudal 3 degree angulation A 5 [place] balloon tipped temporary transvenous pacemaker wire was then advanced via the left femoral venous sheath and under fluoroscopic guidance the distal tip of the pacemaker wire was positioned in the RV apex. Stable RV pacing was demonstrated to a viky of 0.2 MA. A 6 [place] JR4 diagnostic catheter was advanced over a Lunderquist wire via the right femoral 16 [place] Neville arterial sheath and under fluoroscopic guidance the distal tip of the catheter was advanced to the ascending aorta. The Super Stiff Amplatz wire was then exchanged for 0.035 inch straight tip guidewire which was then advanced under fluoroscopic guidance across the aortic valve and positioned in the mid LV cavity. The JR4 catheter was then advanced over the guidewire to the mid LV cavity and the guidewire was then removed. Simultaneous left ventricular and central aortic pressures were then recorded confirming severity of aortic valve stenosis and degree of left ventricular preload. LVEDP 13 mmHg A 0.035 inch extra small curve Safari guidewire was then advanced via the JR4 catheter and under fluoroscopic guidance the distal tip of the wire was positioned at the LV apex and the JR4 catheter was then removed. A 29 mm JOVON Ultra transcatheter heart valve was then prepared in standard fashion and loaded with 33 mL of dilute contrast. This was then loaded onto the safari guidewire and advanced under fluoroscopic guidance via the right femoral 16 [place] Neville arterial sheath to the proximal thoracic aorta. The delivery balloon was then aligned with the transcatheter heart valve and the commander delivery system was then advanced around the aortic arch under fluoroscopic guidance while ante-flexion was applied to the delivery system to maintain coaxial alignment. While observing fluoroscopic guidance via the previously established coplanar angle, the transcatheter heart valve was advanced across the shawnee aortic valve and optimally positioned for deployment. The flex catheter was the withdrawn, and optimal valve position was maintained. We then proceeded to final deployment sequence by initiating rapid ventricular pacing at 180 bpm, performing aortography to confirm final transcatheter heart valve position, and then fully inflating the delivery balloon. Upon successful valve deployment, the delivery balloon was deflated and rapid ventricular pacing was terminated, with excellent hemodynamic and rhythm recovery demonstrated. Transthoracic echocardiogram confirmed excellent transcatheter heart valve position and function. No evidence of valvular or paravalvular regurgitation was evident. Mean aortic valve gradient 4 mmHg. Systolic contractility remained stable with LVEF 50%, and there was no appreciable pericardial effusion. Electrocardiogram demonstrated transient left bundle branch block which promptly resolved upon valve implantation. Satisfied with final result we removed the Commander delivery system and the 16 [place] Neville sheath and achieved excellent hemostasis by advancing the 2 prepositioned Perclose sutures. 40 mg of intravenous protamine administered with final ACT 140. Confirmation of access site patent hemostasis was obtained via vascular ultrasound. The pigtail catheter and right radial artery slender sheath was removed and patent hemostasis achieved by application of a vasc band to 14 ml. The temporary transvenous pacemaker wire and left femoral venous sheath was then removed and hemostasis achieved by manual compression. The procedure was tolerated well and there were no complications. Estimated blood loss <25 mL Estimated contrast load 7 mL Mr. Reis was then transferred in stable condition to the PACU. 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 EKG demonstrated stable sinus rhythm. Echocardiogram confirmed severe aortic valve stenosis with an aortic valve area 0.8 cm??, mean gradient 40 mmHg, and peak gradient of 78 mmHg. Moderate AR, mild MR, mild ischemic cardiomyopathy LVEF 50%. Noncontrast TAVR CT revealed aortic annular area 555 mm?? with remaining anatomy suitable for implantation of a 29 mm Jovon via percutaneous right femoral arterial approach. Mr. Reis's case was reviewed by the [facility] multidisciplinary valvular and structural heart disease team, and was found to meet a class I indication for TAVR. Hemodynamic Data Baseline Pressures: Site: Syst/A Wave: Diast/V Wave: Mean/End Diast: AO 127 55 81 LV 132 2 13 AO 99 46 66 LV 132 13 Summary: PREOPERATIVE DIAGNOSIS: Severe symptomatic nonrheumatic aortic valve stenosis-AHA stage D1, NYHA IV/3, STS PROM 4% POSTOPERATIVE DIAGNOSIS: Successful transcatheter aortic valve replacement utilizing a 29 mm JOVON Ultra via percutaneous right femoral arterial approach. Recommendation(s) : Anticipate will Rx uninterrupted DAPT for a minimum of 6 months post 09/18/2024 PCI-RIGOBERTO of proximal LAD Lifelong endocarditis prophylaxis advised Report By: True , 10/09/2024 Last Update By: Bi Connors MD , 03:52 PM Bi Connors MD electronically signed on 10/09/2024 3:54:02 PM with status of Final [facility] 10/09/2024 11:3 6 AM EDT us Unknown Provider [facility] CARDIOVASCULAR-[place] [address] * CT CHEST, W/O CONTRAST (08/25/2024 1:25 PM EDT) RADRPT Patient Name: CAMERON WU : 1950 Sex:Male Location: [facility] [place] [address]- Radiology ACCESSION EXAM DATE/TIME PROCEDURE ORDERING STATUS PROVIDER [id number] 08/25/2024 13:27 CT Chest w/o CHANTAL PAC, Auth 30 EDT Contrast MELLY (Verified) Reason For Exam (CT Chest w/o Contrast) Chest Pain Report CT CHEST WITHOUT INTRAVENOUS CONTRAST TECHNIQUE: CT scan of the chest was performed without intravenous contrast. Coronal and sagittal reformatted images were generated, together with axial maximum intensity projection images of the lungs. Adaptive Iterative Dose Reduction (AIDR) and NEMA XR 25 DOSE Check software, were used to reduce radiation dose to the patient. INDICATION: Chest pain COMPARISON: Chest x-ray from one day previous. FINDINGS: Absence of intravenous contrast decreases sensitivity for detection of lymphadenopathy and vascular pathology. LUNGS AND LARGE AIRWAYS: Trachea and major airways appear grossly patent. Patchy groundglass opacities are noted within the bilateral lung yu most pronounced within the right upper lobe, compatible with infectious/inflamma tory type etiology. PLEURA: Trace to small bilateral pleural effusions, right greater than left with associated patchy atelectasis. MEDIASTINUM AND VENUS: No mediastinal adenopathy. No hilar adenopathy. HEART AND VESSELS: Heart is enlarged. Diffuse coronary artery calcifications and atherosclerotic calcifications. UPPER ABDOMEN: No acute upper abdominal abnormalities. Hypodense appearance to the liver. There is hyperdense material within gallbladder partially imaged, likely gallbladder sludge. Atherosclerotic calcifications.. Admitting: IB CONNORS MD Consulting: YURI LYON MD Patient Name: CAMERON WU : 1950 Sex:Male Location: [place] [address]- Radiology Report BONES AND SOFT TISSUES: No acute soft tissue findings. Abnormalities. Bilateral gynecomastia. Degenerative changes visualized spine. IMPRESSION: Patchy groundglass opacities are noted within both lungs most likely related to infectious/inflamma tory type etiology. Trace to small bilateral pleural effusions with associated compressive atelectasis. Final Report Dictated: 08/28/2024 9:31 am Dictated By: CRICKET BUENO MD Electronic Signature: 08/28/2024 9:58 am Signed By: CRICKET BUENO MD Admitting: BI CONNORS MD Consulting: YURI LYON MD [facility] Anatomical Region Laterality Modality Other 08/25/2024 1:25 PM EDT us Unknown Provider [facility] IMAGING-[facility] Final Resul t from Last 3 Months or Most Recently Relevant to Health Maintenance Insurance [facility] MEDICARE PLAN [facility] Care Teams Finisher Machine Relationship Specialty Start Date End Date Avery Frank MD [facility] [address] [place] [address] PCP - General Internal Medicine 08/15/24
== END ==
LOC: HO.SL 19:30
PROVIDERS: Visit Provider Nurse Practitioner Family
DX: G47.30 Sleep apnea, unspecified (principal)
CPT/HCPCS: 95810